=== PATIENT | female | born 1970 | race Caucasian/White ===

== ENCOUNTER 2018-11-18 16:08 | Outpatient (CLI) | payer BC ==
--- NOTE | 2018-11-18 17:15 | CT ---
EXAM: CT left ankle without contrast HISTORY: Left ankle pain status post remote history of ORIF of fracture COMPARISON: None TECHNIQUE: Multiple contiguous axial images were obtained and a CT of the left ankle without contrast . Sagittal and coronal reformats were performed. FINDINGS: Screw tracks are seen in the distal tibia from prior fracture repair. There is joint space narrowing in the tibiotalar joint with osteophyte formation consistent with moderate posttraumatic osteoarthritis. No persistent lucency is seen to suggest a nonunion. No free bony fragments are seen. Minimal soft tissue swelling is seen. The flexor tendons, Achilles tendon, peroneal tendons, and exte nsor tendons are intact. 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
== END 2018-11-18 16:09 | disposition home or self-care (01) ==
LOC: SCSCT 16:08
PROVIDERS: ATTEND Orthopaedic Surgery
DX: M19.172 Post-traumatic osteoarthritis, left ankle and foot (principal)

== ENCOUNTER 2020-03-25 19:00 | Outpatient (CLI) | payer BC | END 2020-03-25 19:01 | disposition home or self-care (01) | LOC: SLEEPLAB 19:00 | PROVIDERS: ATTEND Family Medicine | DX: G47.10 Hypersomnia, unspecified (principal); G47.33 Obstructive sleep apnea (adult) (pediatric); R53.83 Other fatigue; R06.83 Snoring; G47.00 Insomnia, unspecified; I10 Essential (primary) hypertension | CPT/HCPCS: 95811 ==